=== PATIENT | male | born 1990 | race Caucasian/White ===

== ENCOUNTER 2021-12-05 01:30 | Emergency (ER) | payer SELFPAY ==
[~2021-12-05] VITALS: Ht 185.4 cm; Wt 74.8 kg
[~2021-12-05 01:30] MED LIST: ACETAMINOPHEN325 M1 PO; ADVIL200 MG PO; MIRALAX119 GM PO; OXYCODONE HCL10 MG PO; STOOL SOFTENER100 MG PO
[2021-12-05] MEDS ORDERED: CEPHALEXIN500 MG PO (02:34)
== END 2021-12-05 02:50 | disposition home or self-care (01) ==
LOC: ED 01:30
DX: S41.111A Laceration without foreign body of right upper arm, initial encounter (principal); I10 Essential (primary) hypertension; Z23 Encounter for immunization; W26.8XXA Contact with other sharp object(s), not elsewhere classified, initial encounter
CPT/HCPCS: 90715